=== PATIENT | male | born 1970 | race African-American/Black ===

== ENCOUNTER 2016-08-18 14:18 | Emergency (ER) | payer MEDICAID ==
[2016-08-18 14:37] VITALS: TEMP 98.4; O2SAT 96
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
[2016-08-18 15:05] LABS: % IMMATURE GRANULYOCYTES 0.3 % (0.0-1.1); ABSOLUTE IMMATURE GRANULOCYTES 0.03 10^3/uL (0.00-0.10); ADD DIFF? NO; ADD MORPH? NO; ADD SCAN? NO; ATYPICAL LYMPHOCYTE FLAG 10 (0-99); FRAGMENT RBC FLAG 0 (0-99); HEMATOCRIT 47.9 % (40.0-51.0); HEMOGLOBIN 16.2 g/dL (13.7-17.5); LEFT SHIFT FLG 0 (0-99); LIPEMIA HEMOLYSIS FLAG 90 (0-99); MEAN CELL HEMOGLOBIN 30.5 pg (27.9-34.1); MEAN CELL HEMOGLOBIN CONCENTR. 33.8 g/dL (32.4-36.7); MEAN CELL VOLUME 90.2 fL (81.5-99.8); MEAN PLATELET VOLUME 12.3 fL (8.7-11.7); PLATELET CLUMPS FLAG 0 (0-99); PLATELET COUNT 187 10^3/uL (150-400); RED BLOOD CELL COUNT 5.31 10^6/uL (4.40-6.38); RED CELL DISTRIBUTION WIDTH 13.5 % (11.5-15.2)
[2016-08-18 15:32] LABS: ANION GAP 15 mEq/L (8-16); CALCIUM 10.5 mg/dL (8.5-10.4); CARBON DIOXIDE 22 mEq/l (22-31); CHLORIDE 108 mEq/L (97-110); CREATININE 1.2 mg/dL (0.7-1.3); ETHANOL SERUM < 10 mg/dL (0-10); GLOMERULAR FILTRATION RATE > 60; GLUCOSE 109 mg/dL (70-100); POTASSIUM 4.2 mEq/L (3.5-5.2); SODIUM 145 mEq/L (134-144)
[2016-08-18 16:39] VITALS: BP 140/80; PULSE 86; RESP 16
[2016-08-18] MEDS ORDERED: HALOPERIDOL LACT 5 MG/ML INJ IVP ONE (23:01)
[2016-08-18] MEDS ORDERED: OLANZapine DISINTEGR 10 MG TAB ONE (23:16)
[2016-08-18] MEDS ORDERED: ZOLPIDEM TARTRATE 5 MG TAB ONE (23:19)
[2016-08-18] MEDS ORDERED: LORazepam 1 MG TAB ONE ×2 (23:19→23:20)
[2016-08-18] MEDS ORDERED: LORazepam 1 MG TAB PO ONE (23:29)
[2016-08-19] MEDS ORDERED: ONDANSETRON DISINTEGRATING 4 MG TAB ONE (01:10)
[2016-08-19] MEDS ORDERED: HALOPERIDOL LACT 5 MG/ML INJ IM ONE (01:51)
[2016-08-19] MEDS ORDERED: HALOPERIDOL LACT 5 MG/ML INJ ONE (01:51)
[2016-08-19] MEDS ORDERED: LORazepam 2 MG/ML INJ ONE (01:55)
== END 2016-08-19 02:26 | disposition home or self-care (01) ==
LOC: EDUNIT#
DX: R45.850 Homicidal ideations (principal); F31.9 Bipolar disorder, unspecified
CPT/HCPCS: 80305; G0480; J2060

== ENCOUNTER 2016-08-19 22:30 | Emergency (ER) | payer MEDICAID ==
[2016-08-19 22:37] VITALS: BP 132/91; PULSE 90; RESP 18; TEMP 99.1; O2SAT 96
[2016-08-19] MEDS ORDERED: IBUPROFEN 200 MG TAB PO ONE (22:49)
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
== END 2016-08-19 23:20 | disposition home or self-care (01) ==
DX: S16.1XXA Strain of muscle, fascia and tendon at neck level, initial encounter (principal); F17.200 Nicotine dependence, unspecified, uncomplicated; X58.XXXA Exposure to other specified factors, initial encounter

== ENCOUNTER 2016-08-24 13:25 | Emergency (ER) | payer MEDICAID ==
[2016-08-24 13:36] VITALS: RESP 18
[2016-08-24] MEDS ORDERED: NS 1,000 ML IV ONE (14:25)
[2016-08-24] MEDS ORDERED: ONDANSETRON 4 MG/2 ML VIAL IVP ONE (14:25)
--- NOTE | 2016-08-24 14:32 | EDPHY ---
H & P Stated Complaint: dizzyness/seen last week HPI/ROS: CHIEF COMPLAINT: Multiple complaints HISTORY OF PRESENT ILLNESS: patient complains of headache, dizziness, weakness , cloudy thought process. This started several days after allegedly being placed under arrest and on a M1 psych hold. He says that during the process he struck his head on the ground several times. He has had some nausea but no vomiting. No chest pain or shortness of breath. No back pain. Symptoms are [id number]. They are persistent. No alleviating factors. No other associated complaints or modifying factors. REVIEW OF SYSTEMS: Ten systems reviewed and are negative unless otherwise noted in the HPI PERTINENT MEDICAL HISTORY: Reviewed EXAMINATION General Appearance: Alert, no distress Head: normocephalic, atraumatic. No hematoma. No depression. No lacerations. Eyes: Pupils equal and round, no conjunctival pallor or injection ENT, Mouth: Mucous membranes moist . Uvula midline. No erythema edema. Neck: Normal inspection, supple, non-tender . Trachea midline. Respiratory: Lungs are clear to auscultation . No wheezing, rhonchi or crackles Cardiovascular: Regular rate and rhythm. No murmur. Pulses intact distally. Gastrointestinal: Abdomen is soft and nontender Back: non-tender, no bony abnormalities Neurological: A&O, nonfocal, normal gait . GCS 15. Strength is symmetric in all limbs. No pronator drift. No dysmetria Skin: Warm and dry, no rash Extremities: Nontender, no pedal edema Psychiatric: Mood and affect normal DIFFERENTIAL DIAGNOSES: Including but not limited to post concussive syndrome, closed head injury, electrolyte disturbance, dehydration, anemia MDM: 2:30 p.m. headache, weakness, dizziness and general discomfort after reports of a closed head injury nearly 1 week ago. No outward signs of trauma on the head. No focal findings on neuro examination. Reports being on multiple other psychotic recently. I have ordered EKG, laboratory studies and CT scan of the head. He is in no acute distress and resting comfortably. 3:20 p.m. notified by radiologist Dr. Sherman. CT scan of the head is unremarkable for any acute findings. 4:10 p.m. all laboratory studies are within normal limits. Patient's vital signs remained stable. He is in no acute distress. No vomiting here in the emergency department. I have re-evaluated at this time. He is feeling much better. He remains neuro intact in no acute distress. He will be discharged home stable condition with instructions to follow up with primary care physician and Dr. Camp. He is to return to ER for any abrupt change in his symptoms. He is comfortable this plan. SUPERVISION: This patient was independently evaluated without direct examination by the attending physician. Case was discussed with attending physician. 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 depression, bipolar, anxiety - Social History Smoking Status: Current some day smoker Constitutional: Initial Vital Signs Temperature (C) 98.6 F 08/24/16 13:34 Heart Rate 71 08/24/16 13:34 Respiratory Rate 18 08/24/16 13:34 Blood Pressure 120/85 H 08/24/16 13:34 O2 Sat (%) 95 08/24/16 13:34 O2 Delivery Mode Room Air Allergies/Adverse Reactions: Benzodiazepines Allergy (Verified 08/24/16 13:33) metaxalone [From Skelaxin] Allergy (Verified 08/24/16 13:33) Home Medications: Medication Instructions Recorded Codeine/Butalbit/Acetamin/Caff 1 each PO Q6 PRN #12 capsule 08/24/16 [Fioricet-Cod [id number] Cap] Medical Decision Making - Diagnostics Imaging Results: Imaging Impressions Head CT 08/24/16 14:26 Impression: Normal noncontrast CT of the brain. Results called to. Gianni Mcdonnell PA-C at the time of the interpretation. - Data Points Laboratory Results: Laboratory Results 08/24/16 15:23 08/24/16 15:23 08/24/16 08/24/16 15:23 15:23 WBC 8.21 10^3/uL 10^3/uL (3.80-9.50) RBC 5.25 10^6/uL 10^6/uL (4.40-6.38) Hgb 16.0 g/dL g/dL (13.7-17.5) Hct 47.4 % % (40.0-51.0) MCV 90.3 fL fL (81.5-99.8) MCH 30.5 pg pg (27.9-34.1) MCHC 33.8 g/dL g/dL (32.4-36.7) RDW 13.2 % % (11.5-15.2) Plt Count 204 10^3/uL 10^3/uL (150-400) MPV 11.9 fL H fL (8.7-11.7) Neut % (Auto) 59.6 % % (39.3-74.2) Lymph % (Auto) 29.1 % % (15.0-45.0) [place] % (Auto) 7.6 % % (4.5-13.0) Eos % (Auto) 2.1 % % (0.6-7.6) Baso % (Auto) 1.2 % % (0.3-1.7) Nucleat RBC Rel Count 0.0 % % (0.0-0.2) Absolute Neuts (auto) 4.90 10^3/uL 10^3/uL (1.70-6.50) Absolute Lymphs (auto) 2.39 10^3/uL 10^3/uL (1.00-3.00) Absolute Monos (auto) 0.62 10^3/uL 10^3/uL (0.30-0.80) Absolute Eos (auto) 0.17 10^3/uL 10^3/uL (0.03-0.40) Absolute Basos (auto) 0.10 10^3/uL 10^3/uL (0.02-0.10) Absolute Nucleated RBC 0.00 10^3/uL 10^3/uL (0-0.01) Immature Gran % 0.4 % % (0.0-1.1) Immature Gran # 0.03 10^3/uL 10^3/uL (0.00-0.10) Sodium 143 mEq/L mEq/L (134-144) Potassium 4.7 mEq/L mEq/L (3.5-5.2) Chloride 107 mEq/L mEq/L (97-110) Carbon Dioxide 24 mEq/l mEq/l (22-31) Anion Gap 12 mEq/L mEq/L (8-16) BUN 14 mg/dL mg/dL (7-23) Creatinine 1.1 mg/dL mg/dL (0.7-1.3) Estimated GFR > 60 Glucose 97 mg/dL mg/dL (70-100) Calcium 10.5 mg/dL H mg/dL (8.5-10.4) Troponin I < 0.012 ng/mL ng/mL (0-0.034) Lipase 223.0 IU/L IU/L (23-300) Medications Given: Discontinued Medications Sodium Chloride (Ns) 1,000 mls @ 0 mls/hr IV ONCE ONE PRN Reason: Wide Open Stop: 08/24/16 14:26 Last Admin: 08/24/16 15:00 Dose: 1,000 mls Ondansetron HCl (Zofran) 4 mg IVP EDNOW ONE Stop: 08/24/16 14:26 Last Admin: 08/24/16 15:52 Dose: Not Given Departure - Departure Disposition: Home, Routine, Self-Care Clinical Impression: Post concussion syndrome Condition: Good Instructions: Post Concussion Syndrome (ED) Additional Instructions: Follow-up with primary care physician. Return to the ER for worsening symptoms. Referrals: Silvia Rogers [Primary Care Provider] - As per Instructions Prescriptions: Codeine/Butalbit/Acetamin/Caff [Fioricet-Cod [id number] Cap] 1 each PO Q6 PRN #12 capsule PRN Reason: Headache
--- NOTE | 2016-08-24 14:52 | CPEKG ---
Heart Rate: 66 RR Interval: 909 P-R Interval: 156 QRSD Interval: 82 QT Interval: 368 QTC Interval: 386 P Jansen: 51 QRS Jansen: 66 T Wave Jansen: 39 EKG Severity - ABNORMAL ECG - EKG Impression: SINUS RHYTHM EKG Impression: ST ELEVATION SUGGESTS PERICARDITIS Electronically Signed By: Lisandro Valdivia 26-Aug-2016 09:09:31
[2016-08-24 15:35] LABS: % IMMATURE GRANULYOCYTES 0.4 % (0.0-1.1); ABSOLUTE IMMATURE GRANULOCYTES 0.03 10^3/uL (0.00-0.10); ADD DIFF? NO; ADD MORPH? NO; ADD SCAN? NO; ATYPICAL LYMPHOCYTE FLAG 20 (0-99); FRAGMENT RBC FLAG 0 (0-99); HEMATOCRIT 47.4 % (40.0-51.0); LEFT SHIFT FLG 0 (0-99); LIPEMIA HEMOLYSIS FLAG 90 (0-99); MEAN CELL HEMOGLOBIN 30.5 pg (27.9-34.1); MEAN CELL HEMOGLOBIN CONCENTR. 33.8 g/dL (32.4-36.7); MEAN CELL VOLUME 90.3 fL (81.5-99.8); MEAN PLATELET VOLUME 11.9 fL (8.7-11.7); PLATELET CLUMPS FLAG 0 (0-99); PLATELET COUNT 204 10^3/uL (150-400); RED BLOOD CELL COUNT 5.25 10^6/uL (4.40-6.38); RED CELL DISTRIBUTION WIDTH 13.2 % (11.5-15.2)
[2016-08-24] MEDS ORDERED: KETOROLAC 30 MG/1 ML SDV ONE (15:47)
[2016-08-24 15:50] LABS: ANION GAP 12 mEq/L (8-16); CALCIUM 10.5 mg/dL (8.5-10.4); CARBON DIOXIDE 24 mEq/l (22-31); CHLORIDE 107 mEq/L (97-110); CREATININE 1.1 mg/dL (0.7-1.3); GLOMERULAR FILTRATION RATE > 60; GLUCOSE 97 mg/dL (70-100); POTASSIUM 4.7 mEq/L (3.5-5.2); SODIUM 143 mEq/L (134-144)
[2016-08-24 16:00] LABS: TROPONIN I < 0.012 ng/mL (0-0.034)
[2016-08-24 16:40] VITALS: BP 130/80; PULSE 73; TEMP 98.2; O2SAT 96
== END 2016-08-24 16:40 | disposition home or self-care (01) ==
DX: G44.309 Post-traumatic headache, unspecified, not intractable (principal); F07.81 Postconcussional syndrome; F17.200 Nicotine dependence, unspecified, uncomplicated; W22.8XXA Striking against or struck by other objects, initial encounter
CPT/HCPCS: J1885; J2405

== ENCOUNTER → 2018-01-03 | Outpatient (CLI) | payer MEDICAID | LOC: FCPNEURO 21:00 | PROVIDERS: ATTEND Student in an Organized Health Care Education/Training Program | DX: G47.33 Obstructive sleep apnea (adult) (pediatric) (principal) ==